=== PATIENT | female | born 1955 | race American Indian/Alaskan Native ===

== ENCOUNTER 2016-12-12 17:23 | Emergency (ER) | payer OTHER ==
[2016-12-12 17:36] VITALS: BP 165/89
[2016-12-12 17:59] LABS: Basophils % (Auto) 0.9 % (0.0-1.8); Hematocrit 34.2 % (30.3-42.9); Hemoglobin 10.9 gm/dl (10.1-14.3); Mean Corpuscular HGB Conc 32 % (30-34); Mean Corpuscular Hemoglobin 27 pg (28-32); Mean Corpuscular Volume 84 fl (79-97); Platelet Count 253 K/mm3 (140-440); Red Blood Count 4.05 M/mm3 (3.65-5.03); Red Cell Distribution Width 14.4 % (13.2-15.2); White Blood Count 6.2 K/mm3 (4.5-11.0)
[2016-12-12 18:07] LABS: Anion Gap 19 mmol/L; BUN/Creatinine Ratio 25.55; Blood Urea Nitrogen 23 mg/dL (7-17); Calcium 9.7 mg/dL (8.4-10.2); Carbon Dioxide 27 mmol/L (22-30); Chloride 95.3 mmol/L (98-107); Glucose 112 mg/dL (65-100); Sodium 137 mmol/L (137-145)
[2016-12-12 18:49] LABS: Bilirubin,Urine NEG (Negative); Blood,Urine NEG (Negative); Ketones,Urine NEG (Negative); Leukocyte Esterase,Urine NEG (Negative); Nitrite,Urine NEG (Negative); Protein,Urine <15 mg/dL mg/dL (Negative); Urobilinogen,Urine < 2.0 mg/dL (<2.0); WBC,Urine < 1.0 /HPF (0.0-6.0)
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
== END 2016-12-12 22:00 | disposition home or self-care (01) ==
LOC: ED 17:23
DX: R53.83 Other fatigue (principal); G44.1 Vascular headache, not elsewhere classified; I10 Essential (primary) hypertension; E11.9 Type 2 diabetes mellitus without complications; F12.10 Cannabis abuse, uncomplicated; Z95.818 Presence of other cardiac implants and grafts; Z88.1 Allergy status to other antibiotic agents
CPT/HCPCS: 36415; 80048; 81001; 82010; 82805; 82962; 85025; 99284

== ENCOUNTER 2017-02-23 00:05 | Emergency (ER) | payer OTHER ==
[2017-02-23] MEDS ORDERED: NORCO 5/325 PO ONE ×2 (01:21→05:05)
--- NOTE | 2017-02-23 04:28 | Emergency Department Report ---
ED Rash HPI - HPI Chief Complaint: Skin Rash Stated Complaint: POSS SPIDER TO SIDE/PAIN Time Seen by Provider: 02/23/17 04:21 Duration: 3 Days Location: Abdomen Rash Symptoms: Yes Itching, Yes Blistering, No Facial Swelling, No Tongue/Oral Swelling, No Breathing Difficulties, No Choking Sensation, No Wheezing/Dyspnea, No Peeling, No Fever, No Lightheaded, No Malaise, No Myalgias Severity: moderate Other History: 61-year-old female past medical history hypertension, diabetes presents with complaint of itchy painful rash to her right flank. Patient denies cough, denies chest pain. Patient denies fever or chills. States she thinks it may be an insect bite. States has had some bubbly appearance on the skin. When I interviewed the patient I specifically asked her if she had chickenpox as a child and she said yes. No prior history of shingles ED Review of Systems ROS: Stated complaint: POSS SPIDER TO SIDE/PAIN Other details as noted in HPI Constitutional: denies: chills, fever Eyes: denies: eye pain, eye discharge, vision change ENT: denies: ear pain, throat pain Respiratory: denies: cough, shortness of breath, wheezing Cardiovascular: denies: chest pain, palpitations Endocrine: no symptoms reported Gastrointestinal: denies: abdominal pain, nausea, diarrhea Genitourinary: denies: urgency, dysuria, discharge Musculoskeletal: denies: back pain, joint swelling, arthralgia Skin: denies: rash, lesions Neurological: denies: headache, weakness, paresthesias Psychiatric: denies: anxiety, depression Hematological/Lymphatic: denies: easy bleeding, easy bruising ED Past Medical Hx - Past Medical History Previous Medical History?: Yes Hx Hypertension: Yes (2008) Hx Diabetes: Yes - Surgical History Past Surgical History?: Yes Hx Coronary Stent: Yes Additional Surgical History: Fibroid tumor removed - Social History Smoking Status: Never Smoker Substance Use Type: None - Medications Home Medications: Home Medications Medication Instructions Recorded Confirmed Last Taken Type Doxazosin Mesylate [Cardura] 2 mg PO QHS 09/25/13 07/08/15 09/23/13 History Prasugrel [Effient] 10 mg PO DAILY 09/25/13 07/08/15 09/23/13 History glipiZIDE [glipiZIDE XL] 10 mg PO DAILY 09/25/13 07/08/15 09/23/13 History metFORMIN XR [Glucophage XR] 1,000 mg PO DAILY 09/25/13 07/08/15 09/23/13 History AtorvaSTATin [Lipitor] 20 mg PO DAILY 07/08/15 07/08/15 Unknown History Doxazosin Mesylate [Cardura] 2 mg PO QHS #7 tablet 07/08/15 Unknown Rx Ergocalciferol [Vitamin D2] 1 cap PO QWEEK 07/08/15 07/08/15 Unknown History Valsartan/Hydrochlorothiazide 1 tab PO QDAY 07/08/15 07/08/15 Unknown History [Diovan Hct 160-12.5 mg] Valsartan/Hydrochlorothiazide 1 tab PO QDAY #7 tablet 07/08/15 Unknown Rx [Diovan Hct 160-12.5 mg] amLODIPine [Norvasc] 10 mg PO DAILY 07/08/15 07/08/15 Unknown History amLODIPine [Norvasc] 10 mg PO DAILY #7 tab 07/08/15 Unknown Rx Clindamycin [Clindamycin CAP] 300 mg PO Q8H #21 cap 02/23/17 Unknown Rx HYDROcodone/APAP 5-325 [[place] 1 each PO Q6HR PRN #15 tablet 02/23/17 Unknown Rx 5/325] Valacyclovir HCl [Valtrex] 1,000 mg PO TID #21 tablet 02/23/17 Unknown Rx Rash Exam - Exam General: Vital signs noted. No distress. Alert and acting appropriately. HEENT: No Periorbital Edema, No Conjuctival Injection, No Chemosis, No Perioral Edema, No Tongue Edema, No Uvular Edema, No Compromised Airway, No Drooling Lungs: Yes Good Air Exchange (Normal Breath Sounds), No Wheezes, No Ronchi, No Stridor, No Cough, No Labored Respirations, No Retractions, No Use of Accessory Muscles, No Other Abnormal Lung Sounds Heart: Yes Regular, No Murmur Skin: Yes Maculopapular Rash (vesicular rash to her right flank along the path of the dermatome), Yes Tenderness, Yes Erythema, No Urticarial Rash, No Morbilliform rash, No Bulla(e), No Excoriations, No Weeping, No Edema, No Encrustations, No Other Other: Positive: Abdomen Normal, Neurologic Normal, Musculoskeletal Normal ED Course Vital Signs 02/23/17 01:09 Temperature 98.8 F Pulse Rate 94 H Respiratory 18 Rate Blood Pressure 142/84 O2 Sat by Pulse 96 Oximetry ED Medical Decision Making - Medical Decision Making A/P: Shingles rash 1-Valtrex for initial shingles outbreak 1 g 3 times a day for 1 week 2-[place] when necessary 3-Motrin when necessary 4- follow up with primary doctor 5- as there is some erythema at the site and surrounding site of shingles rash I will cover empirically with clindamycin. I will avoid Bactrim as patient is currently on anticoagulants. Patient has anaphylaxis with penicillin as well, will avoid cephalosporin Critical care attestation.: If time is entered above; I have spent that time in minutes in the direct care of this critically ill patient, excluding procedure time. ED Disposition Clinical Impression: Shingles rash Qualifiers: Herpes zoster complications: without complications Qualified Code(s): B02.9 - Zoster without complications Cellulitis Qualifiers: Site of cellulitis: trunk Disposition: - TO HOME OR SELFCARE Is pt being admited?: No Does the pt Need Aspirin: No Condition: Stable Instructions: Herpes Zoster (ED) Additional Instructions: I advised patient to return to the ED for any high fevers and or presence of severe cough Prescriptions: Clindamycin [Clindamycin CAP] 300 mg PO Q8H #21 cap HYDROcodone/APAP 5-325 [[place]ia 5/325] 1 each PO Q6HR PRN #15 tablet PRN Reason: Pain Valacyclovir HCl [Valtrex] 1,000 mg PO TID #21 tablet Referrals: DEYANIRA WELLER MD [Staff Physician] - 3-5 Days [facility] [Outside] - 3-5 Days Forms: Accompanied Note, Work/School Release Form(ED) Time of Disposition: 04:29
[2017-02-23] MEDS ORDERED: NORCO 5/325 ONE (05:04)
[2017-02-23 05:11] VITALS: BP 162/86
== END 2017-02-23 05:10 | disposition home or self-care (01) ==
LOC: ED 00:05
DX: L03.311 Cellulitis of abdominal wall (principal); I10 Essential (primary) hypertension; E11.9 Type 2 diabetes mellitus without complications; Z95.1 Presence of aortocoronary bypass graft
CPT/HCPCS: 99282

== ENCOUNTER 2017-03-27 01:18 | Emergency (ER) | payer OTHER ==
[2017-03-27] MEDS ORDERED: CATAPRES PO ONE (01:55)
[2017-03-27] MEDS ORDERED: CATAPRES ONE (01:58)
[2017-03-27 02:29] LABS: Basophils % (Auto) 0.6 % (0.0-1.8); Eosinophils % (Auto) 2.1 % (0.0-4.3); Hematocrit 35.5 % (30.3-42.9); Hemoglobin 11.4 gm/dl (10.1-14.3); Mean Corpuscular HGB Conc 32 % (30-34); Mean Corpuscular Hemoglobin 27 pg (28-32); Mean Corpuscular Volume 85 fl (79-97); Platelet Count 246 K/mm3 (140-440); Red Blood Count 4.18 M/mm3 (3.65-5.03)
[2017-03-27 02:44] LABS: Alanine Aminotransferase 13 units/L (7-56); Albumin 3.3 g/dL (3.9-5); Albumin/Globulin Ratio 0.9 %; Alkaline Phosphatase 62 units/L (35-129); Anion Gap 18 mmol/L; BUN/Creatinine Ratio 22.85; Bilirubin,Total < 0.20 mg/dL (0.1-1.2); Blood Urea Nitrogen 16 mg/dL (7-17); Carbon Dioxide 24 mmol/L (22-30); Chloride 98.3 mmol/L (98-107); Glucose 167 mg/dL (65-100); Potassium 3.6 mmol/L (3.6-5.0); Sodium 137 mmol/L (137-145)
[2017-03-27 04:50] VITALS: BP 159/90
--- NOTE | 2017-03-27 05:36 | Emergency Department Report ---
ED Lower Extremity HPI - General Chief Complaint: Extremity Problem,Nontraumatic Stated Complaint: FEET AND RT ARM PAIN Time Seen by Provider: 03/27/17 05:26 Source: patient Mode of arrival: Ambulatory Limitations: No Limitations - History of Present Illness Initial Comments: pt is a 61 y/o aaf with of DM who presents for left foot heal pain after wearing "shoes that are too big" pt advises that shoes "rub on the back of my heal" pt endorses blister last week healed, pt states pain is 4/10 aching pain is exacerbated by prolong ed standing waling Pain is relieved by rest and elevation, Complaint: foot injury Onset/Timin -: week(s) Injury: Foot: Left (heal tenderness) Type of Injury: other (none ) Place: home Severity: mild, moderate Severity scale (0 -10): 3 Improves With: rest Worsens With: weight bearing, palpation Context: other (friction rub from shoe ) Associated Symptoms: denies: swelling, numbness, tingling, unable to bear weight , able to partially bear weight, ambulatory Treatments Prior to Arrival: cold therapy - Related Data Home Medications Medication Instructions Recorded Confirmed Last Taken Doxazosin Mesylate [Cardura] 2 mg PO QHS 09/25/13 07/08/15 09/23/13 Prasugrel [Effient] 10 mg PO DAILY 09/25/13 07/08/15 09/23/13 glipiZIDE [glipiZIDE XL] 10 mg PO DAILY 09/25/13 07/08/15 09/23/13 Ergocalciferol [Vitamin D2] 1 cap PO QWEEK 07/08/15 07/08/15 Unknown Valsartan/Hydrochlorothiazide 1 tab PO QDAY 07/08/15 07/08/15 Unknown [Diovan Hct 160-12.5 mg] amLODIPine [Norvasc] 10 mg PO DAILY 07/08/15 07/08/15 Unknown Previous Rx's Medication Instructions Recorded Last Taken Type Doxazosin Mesylate [Cardura] 2 mg PO QHS #7 tablet 07/08/15 Unknown Rx Valsartan/Hydrochlorothiazide 1 tab PO QDAY #7 tablet 07/08/15 Unknown Rx [Diovan Hct 160-12.5 mg] amLODIPine [Norvasc] 10 mg PO DAILY #7 tab 07/08/15 Unknown Rx Clindamycin [Clindamycin CAP] 300 mg PO Q8H #21 cap 02/23/17 Unknown Rx HYDROcodone/APAP 5-325 [[place] 1 each PO Q6HR PRN #15 tablet 02/23/17 Unknown Rx 5/325] Valacyclovir HCl [Valtrex] 1,000 mg PO TID #21 tablet 02/23/17 Unknown Rx AtorvaSTATin [Lipitor] 20 mg PO DAILY #30 tablet 03/27/17 Unknown Rx Ibuprofen [Motrin 800 MG tab] 400 mg PO TID #30 tablet 03/27/17 Unknown Rx Valsartan/Hydrochlorothiazide 1 tab PO QDAY #30 tablet 03/27/17 Unknown Rx [Diovan Hct 160-12.5 mg] metFORMIN XR [Glucophage XR] 1,000 mg PO DAILY #60 tablet 03/27/17 Unknown Rx Allergies Allergy/AdvReac Type Severity Reaction Status Date / Time ampicillin AdvReac Severe FACIAL Verified 09/25/13 09:01 SWELLING,HIVES ED Review of Systems ROS: Stated complaint: FEET AND RT ARM PAIN Other details as noted in HPI Constitutional: denies: chills, fever Eyes: denies: eye pain, eye discharge, vision change ENT: denies: ear pain, throat pain Respiratory: denies: cough, shortness of breath, wheezing Cardiovascular: denies: chest pain, palpitations Endocrine: no symptoms reported Gastrointestinal: denies: abdominal pain, nausea, diarrhea Genitourinary: denies: urgency, dysuria, discharge Musculoskeletal: arthralgia, myalgia, other (left heal pain ) Skin: denies: rash, lesions Neurological: denies: headache, weakness, paresthesias Psychiatric: denies: anxiety, depression Hematological/Lymphatic: denies: easy bleeding, easy bruising ED Past Medical Hx - Past Medical History Previous Medical History?: Yes Hx Hypertension: Yes (2008) Hx Diabetes: Yes - Surgical History Past Surgical History?: Yes Hx Coronary Stent: Yes Additional Surgical History: Fibroid tumor removed - Social History Smoking Status: Never Smoker Substance Use Type: None - Medications Home Medications: Home Medications Medication Instructions Recorded Confirmed Last Taken Type Doxazosin Mesylate [Cardura] 2 mg PO QHS 09/25/13 07/08/15 09/23/13 History Prasugrel [Effient] 10 mg PO DAILY 09/25/13 07/08/15 09/23/13 History glipiZIDE [glipiZIDE XL] 10 mg PO DAILY 09/25/13 07/08/15 09/23/13 History Doxazosin Mesylate [Cardura] 2 mg PO QHS #7 tablet 07/08/15 Unknown Rx Ergocalciferol [Vitamin D2] 1 cap PO QWEEK 07/08/15 07/08/15 Unknown History Valsartan/Hydrochlorothiazide 1 tab PO QDAY 07/08/15 07/08/15 Unknown History [Diovan Hct 160-12.5 mg] Valsartan/Hydrochlorothiazide 1 tab PO QDAY #7 tablet 07/08/15 Unknown Rx [Diovan Hct 160-12.5 mg] amLODIPine [Norvasc] 10 mg PO DAILY 07/08/15 07/08/15 Unknown History amLODIPine [Norvasc] 10 mg PO DAILY #7 tab 07/08/15 Unknown Rx Clindamycin [Clindamycin CAP] 300 mg PO Q8H #21 cap 02/23/17 Unknown Rx HYDROcodone/APAP 5-325 [[place] 1 each PO Q6HR PRN #15 tablet 02/23/17 Unknown Rx 5/325] Valacyclovir HCl [Valtrex] 1,000 mg PO TID #21 tablet 02/23/17 Unknown Rx AtorvaSTATin [Lipitor] 20 mg PO DAILY #30 tablet 03/27/17 Unknown Rx Ibuprofen [Motrin 800 MG tab] 400 mg PO TID #30 tablet 03/27/17 Unknown Rx Valsartan/Hydrochlorothiazide 1 tab PO QDAY #30 tablet 03/27/17 Unknown Rx [Diovan Hct 160-12.5 mg] metFORMIN XR [Glucophage XR] 1,000 mg PO DAILY #60 tablet 03/27/17 Unknown Rx ED Physical Exam - General Limitations: No Limitations General appearance: alert, in no apparent distress - Head Head exam: Present: atraumatic, normocephalic - Eye Eye exam: Present: normal appearance - ENT ENT exam: Present: mucous membranes moist - Neck Neck exam: Present: normal inspection - Respiratory Respiratory exam: Present: normal lung sounds bilaterally. Absent: respiratory distress - Cardiovascular Cardiovascular Exam: Present: regular rate, normal rhythm. Absent: systolic murmur, diastolic murmur, rubs, gallop - GI/Abdominal GI/Abdominal exam: Present: soft, normal bowel sounds - Rectal Rectal exam: Present: deferred - Extremities Exam Extremities exam: Present: normal inspection, full ROM, tenderness, normal capillary refill. Absent: pedal edema, joint swelling, calf tenderness - Expanded Lower Extremity Exam Left Foot/Toe exam: Present: normal inspection, full ROM, tenderness, ecchymosis, erythema, calcaneal tenderness. Absent: swelling, abrasion, laceration, deformity, crepidus, dislocation, amputation, puncture wound, foreign body, tenderness at base of 5th metatarsal, nail avulsion, subungual hematoma Neuro vascular tendon exam: Present: no vascular compromise. Absent: pulse deficit, abnormal cap refill, motor deficit, sensory deficit, tendon deficit, extremity cold to touch, pallor, abnormal 2-point discrimination, decreased fine /light touch, foot drop, peroneal nerve deficit, significant pain with passive ROM of distal joint ED Course Vital Signs 03/27/17 03/27/17 03/27/17 01:42 02:03 04:48 Temperature 98.9 F 98.5 F Pulse Rate 84 84 81 Respiratory 18 20 Rate Blood Pressure 216/108 216/108 159/90 O2 Sat by Pulse 98 100 Oximetry ED Lower Extremity MDM - Lab Data Result diagrams: 03/27/17 02:13 03/27/17 02:13 - Medical Decision Making pt is a 61 y/o aaf with hx htn and DM II who presents for left heal pain after wearing shoes that were too big resulting in a blister formation , blister ruputres skin healed small less than a dime no erythema no swelling noted tendereness of site, plan. tylenol for pain , bacitracin ointment bid, mole skin or socks with proper size shoe pt verbalized understanding and agreement with same. Critical care attestation.: If time is entered above; I have spent that time in minutes in the direct care of this critically ill patient, excluding procedure time. ED Disposition Clinical Impression: Callus of heel Disposition: DC-01 TO HOME OR SELFCARE Is pt being admited?: No Does the pt Need Aspirin: No Condition: Good Instructions: Blister (ED) Prescriptions: AtorvaSTATin [Lipitor] 20 mg PO DAILY #30 tablet Ibuprofen [Motrin 800 MG tab] 400 mg PO TID #30 tablet metFORMIN XR [Glucophage XR] 1,000 mg PO DAILY #60 tablet Valsartan/Hydrochlorothiazide [Diovan Hct 160-12.5 mg] 1 tab PO QDAY #30 tablet Referrals: PRIMARY CARE, [Primary Care Provider] - 3-5 Days Forms: Work/School Release Form(ED) Time of Disposition: 05:53
[2017-03-27] MEDS: TYLENOL #3 PO ONE ×2 (05:45→05:49)
[2017-03-27] MEDS ORDERED: MOTRIN PO ONE (05:49)
== END 2017-03-27 06:07 | disposition home or self-care (01) ==
LOC: ED 01:18
DX: L84 Corns and callosities (principal); I10 Essential (primary) hypertension; E11.9 Type 2 diabetes mellitus without complications; Z88.1 Allergy status to other antibiotic agents
CPT/HCPCS: 36415; 80053; 85025; 99283

== ENCOUNTER 2017-08-20 20:08 | Emergency (ER) | payer OTHER ==
[2017-08-20 20:57] VITALS: BP 147/87
[2017-08-20] MEDS ORDERED: TYLENOL PO ONE (20:58)
--- NOTE | 2017-08-20 22:41 | XRay Report ---
FINAL REPORT PROCEDURE: XR CHEST ROUTINE 2V TECHNIQUE: PA and lateral chest radiographs were obtained. CPT 39847 HISTORY: productive cough COMPARISON: No prior studies are available for comparison. FINDINGS: Heart: Normal. Mediastinum/Vessels: Normal. Lungs/Pleural space: Normal. Bony thorax: No acute osseous abnormality. Other: IMPRESSION: Negative l examination.
--- NOTE | 2017-08-21 05:22 | Emergency Department Report ---
HPI - General Chief Complaint: Upper Respiratory Infection Time Seen by Provider: 08/21/17 04:42 - HPI HPI: Patient here reports cold symptoms since 08/08/2017. She says she has a productive cough with yellow mucus. She reports chills. She reports that she has nasal congestion and sinus pressure and then productive cough started one week ago. She is having generalized pain 10 out of 10 that they can. Patient states she's taken medication [id number] for cold and cough but is not helping. She has a history of diabetes and hypertension. Denies any chest pain or shortness of breath. Denies any abdominal or back pain. Denies any sore throat. ED Past Medical Hx - Past Medical History Previous Medical History?: Yes Hx Hypertension: Yes (2008) Hx Diabetes: Yes - Surgical History Past Surgical History?: Yes Hx Coronary Stent: Yes Additional Surgical History: Fibroid tumor removed - Family History Family history: diabetes, hypertension - Social History Smoking Status: Never Smoker Substance Use Type: None - Medications Home Medications: Home Medications Medication Instructions Recorded Confirmed Last Taken Type Doxazosin Mesylate [Cardura] 2 mg PO QHS 09/25/13 07/08/15 09/23/13 History Prasugrel [Effient] 10 mg PO DAILY 09/25/13 07/08/15 09/23/13 History glipiZIDE [glipiZIDE XL] 10 mg PO DAILY 09/25/13 07/08/15 09/23/13 History Doxazosin Mesylate [Cardura] 2 mg PO QHS #7 tablet 07/08/15 Unknown Rx Ergocalciferol [Vitamin D2] 1 cap PO QWEEK 07/08/15 07/08/15 Unknown History Valsartan/Hydrochlorothiazide 1 tab PO QDAY 07/08/15 07/08/15 Unknown History [Diovan Hct 160-12.5 mg] Valsartan/Hydrochlorothiazide 1 tab PO QDAY #7 tablet 07/08/15 Unknown Rx [Diovan Hct 160-12.5 mg] amLODIPine [Norvasc] 10 mg PO DAILY 07/08/15 07/08/15 Unknown History amLODIPine [Norvasc] 10 mg PO DAILY #7 tab 07/08/15 Unknown Rx Clindamycin [Clindamycin CAP] 300 mg PO Q8H #21 cap 02/23/17 Unknown Rx HYDROcodone/APAP 5-325 [[place] 1 each PO Q6HR PRN #15 tablet 02/23/17 Unknown Rx 5/325] Valacyclovir HCl [Valtrex] 1,000 mg PO TID #21 tablet 02/23/17 Unknown Rx AtorvaSTATin [Lipitor] 20 mg PO DAILY #30 tablet 03/27/17 Unknown Rx Ibuprofen [Motrin 800 MG tab] 400 mg PO TID #30 tablet 03/27/17 Unknown Rx Valsartan/Hydrochlorothiazide 1 tab PO QDAY #30 tablet 03/27/17 Unknown Rx [Diovan Hct 160-12.5 mg] metFORMIN XR [Glucophage XR] 1,000 mg PO DAILY #60 tablet 03/27/17 Unknown Rx Azithromycin [Zithromax Z-CECILIA] 250 mg PO DAILY 5 Days #5 tab 08/21/17 Unknown Rx Cetirizine HCl [ZyrTEC] 10 mg PO QAM 14 Days #14 capsule 08/21/17 Unknown Rx Fluticasone [Flonase] 1 spray NS QDAY 14 Days #1 bottle 08/21/17 Unknown Rx guaiFENesin/CODEINE [Robitussin AC] 5 ml PO Q8H PRN 5 Days #75 08/21/17 Unknown Rx oral.liqd ED Review of Systems ROS: Stated complaint: COLD SX Other details as noted in HPI Comment: All other systems reviewed and negative Constitutional: chills, fever Eyes: denies: eye pain, eye discharge ENT: congestion. denies: ear pain, throat pain Respiratory: cough. denies: orthopnea, shortness of breath, SOB with exertion, SOB at rest, stridor, wheezing Cardiovascular: denies: chest pain, palpitations, dyspnea on exertion, orthopnea , edema, syncope, paroxysmal nocturnal dyspnea Gastrointestinal: denies: abdominal pain, nausea, vomiting, diarrhea, constipation, hematemesis, melena Genitourinary: denies: urgency, dysuria, frequency, hematuria, discharge Musculoskeletal: myalgia. denies: back pain, joint swelling, arthralgia Skin: denies: rash Neurological: denies: headache, weakness, numbness, paresthesias, confusion, abnormal gait, vertigo Physical Exam - Physical Exam Vital Signs: Vital Signs 08/20/17 20:51 Temperature 99.3 F Pulse Rate 89 Respiratory 18 Rate Blood Pressure 147/87 O2 Sat by Pulse 100 Oximetry General: This is a 61-year-old female well-nourished well-developed in no acute distress. Physical Exam: Head: Normocephalic atraumatic Ears:BIateral TM congested without erythema or loss of bony landmarks. Alejandro EAC with normal exam. No mastoid bone tenderness. Mouth: Moist, no pharyngeal erythema or exudate . No tonsillar erythema or exudate. UVULA midline and oral airways patent. No peritonsillar abscess Neck: Nontender to palpate, supple, normal range of motion. No adenopathy. No c- spine tenderness. Nose: Bilateral nasal mucosa congested and erythema with clear drainage. Maxillary and frontal sinuses non-tender to palpate. Extremity: No clubbing, cyanosis or edema. +2 pulses to all extremities. No neurovascular compromise Abdomen: Soft, nontender to palpation in all quadrants. Normal bowel sounds and no CVA tenderness Eyes: Sclerae and conjunctiva without injection. Bilateral pupils equal and reactive to light. Bilateral lids are normal. Normal accommodation.BEOMI Lungs: Clear to auscultate bilaterally, no rhonchi wheezes or rales. Normal work of breathing and no chest wall tenderness. Dry cough CV: S1, S2. Regular rate and rhythm negative murmur. Capillary refill is less than 3 seconds Skin: Clean dry and intact, no rashes or lesions Psych: Normal mood and behavior ED Course Vital Signs 08/20/17 20:51 Temperature 99.3 F Pulse Rate 89 Respiratory 18 Rate Blood Pressure 147/87 O2 Sat by Pulse 100 Oximetry - Reevaluation(s) Reevaluation #1: 08/21/17 06:22 Patient given Tylenol 975 mg in triage area which relieved her pain. ED Medical Decision Making - Lab Data Influenza A and B is negative - Radiology Data Radiology results: report reviewed Chest x-ray revealed no acute cardiopulmonary findings - Medical Decision Making ED course: She is here complaining of cough and cold symptoms with sinus congestion that has been going on since 08/08/2017 and she said cough started one week ago when she is coughing up yellow mucus. Influenza A and B-, chest x- ray revealed no acute cardiopulmonary findings. I did discuss lab results and x -ray results with patient. Physical findings for acute upper respiratory infection with cough and congestion, body aches. I discussed diagnosis and treatment plan the patient and she voiced understanding. Patient discharged home in stable condition with prescription for Flonase, Zyrtec and Augmentin. Critical care attestation.: If time is entered above; I have spent that time in minutes in the direct care of this critically ill patient, excluding procedure time. ED Disposition Clinical Impression: Upper respiratory infection with cough and congestion, Body aches Disposition: - TO HOME OR SELFCARE Is pt being admited?: No Does the pt Need Aspirin: No Condition: Stable Instructions: Upper Respiratory Infection (ED), Acute Cough (ED) Additional Instructions: Please increase her fluid intake Flush nostrils with saline nasal spray take antibiotic as prescribed F/U with primary care physician as instructed and if he do not have a primary care physician U can follow up at [facility] Please do not drive or operate heavy machinery while taking in guaifenesin with codeine as this medication causes drowsiness Take [id number] Tylenol per dosing chart guidelines and this will help to relieve your body aches. Prescriptions: Azithromycin [Zithromax Z-CECILIA] 250 mg PO DAILY 5 Days #5 tab Cetirizine HCl [ZyrTEC] 10 mg PO QAM 14 Days #14 capsule Fluticasone [Flonase] 1 spray NS QDAY 14 Days #1 bottle guaiFENesin/CODEINE [Robitussin AC] 5 ml PO Q8H PRN 5 Days #75 oral.liqd PRN Reason: Cough Referrals: [facility] [Outside] - 2-3 Days PRIMARY CARE,MD [Primary Care Provider] - 2-3 Days Forms: Accompanied Note, Work/School Release Form(ED)
== END 2017-08-21 06:35 | disposition home or self-care (01) ==
LOC: ED 20:08
DX: J06.9 Acute upper respiratory infection, unspecified (principal); R05 Cough; M79.1 Myalgia; I10 Essential (primary) hypertension; E11.9 Type 2 diabetes mellitus without complications
CPT/HCPCS: 71046; 87400

== ENCOUNTER 2018-09-26 13:54 | Emergency (ER) | payer OTHER ==
--- NOTE | 2018-09-26 14:22 | Emergency Department Report ---
Blank Doc - Documentation Documentation: This is a 62-year-old female that presents with shortness of breathe with left sided chest pain. States radiates to left arm. Denies any other complaints. PMH: DM, HTN, cardiac stent This initial assessment diagnostic orders/clinical plan/treatment(s) is/are subject to change based on patient's health status, clinical progression and re- assessment by fellow clinical providers in the ED. Further treatment and workup at subsequent clinical providers discretion. Patient/guardians urged not to elope from ED s their condition may be serious if not clinically assessed and managed. Initial orders include: 1-Patient sent to MAIN ED for further evaluation and treatment 2- Labs 3- EKG 4- CXR
[2018-09-26 14:55] LABS: Basophils # (Auto) 0.1 K/mm3 (0.0-0.1); Eosinophils # (Auto) 0.1 K/mm3 (0.0-0.4); Eosinophils % (Auto) 2.2 % (0.0-4.3); Hemoglobin 10.7 gm/dl (10.1-14.3); Lymphocytes # (Auto) 2.1 K/mm3 (1.2-5.4); Lymphocytes % (Auto) 40.1 % (13.4-35.0); Mean Corpuscular HGB Conc 33 % (30-34); Mean Corpuscular Volume 84 fl (79-97); Monocytes # (Auto) 0.4 K/mm3 (0.0-0.8); Monocytes % (Auto) 6.9 % (0.0-7.3); Platelet Count 239 K/mm3 (140-440); Red Blood Count 3.94 M/mm3 (3.65-5.03); Red Cell Distribution Width 16.1 % (13.2-15.2)
[2018-09-26 15:23] LABS: Alanine Aminotransferase 13 units/L (7-56); Albumin 3.5 g/dL (3.9-5); BUN/Creatinine Ratio 21; Blood Urea Nitrogen 19 mg/dL (7-17); Calcium 8.8 mg/dL (8.4-10.2); Hemolysis Index 2
[2018-09-26 15:26] LABS: INR 0.95 (0.87-1.13)
[2018-09-26 15:27] LABS: Partial Thromboplastin Time 22.1 Sec. (24.2-36.6)
--- NOTE | 2018-09-26 15:27 | XRay Report ---
ROUTINE CHEST, TWO VIEWS: HISTORY: chest pain. The trachea, heart, mediastinal contour, lung alford and bony thorax are unremarkable. IMPRESSION: Unremarkable chest x-ray.
[2018-09-26] MEDS ORDERED: NITROSTAT SL PRN (17:05)
[2018-09-26] MEDS ORDERED: NACL 0.9% 500 ML 500 ML IV ONE (17:05)
[2018-09-26] MEDS ORDERED: BABY ASPIRIN PO ONE (17:05)
[2018-09-26] MEDS ORDERED: APRESOLINE IV ONE (17:06)
--- NOTE | 2018-09-26 17:06 | Emergency Department Report ---
ED General Adult HPI - General Chief complaint: Chest Pain Stated complaint: CHEST PAIN/SOB Time Seen by Provider: 09/26/18 14:20 Source: patient, RN notes reviewed, old records reviewed Mode of arrival: Ambulatory Limitations: No Limitations - History of Present Illness Initial comments: This is a 62-year-old female who I have evaluated in the past. The patient reports that secondary to insurance issues she does not currently have a primary general expeditor. She currently does not have a local primary care doctor. Past history includes hypertension, heart disease with stent, diabetes, high cholesterol. Patient presents to the emergency room with the complaint of cough, chest tightness, shortness of breath, without vomiting, diaphoresis. The chest tightness is central and left-sided, does not radiate to the back, arms or neck, and there is no vomiting or diaphoresis. The patient does endorse shortness of breath, which is intermittently exertional. She reports that she has a weekly road trip to [place] to visit family. She denies leg pain, leg swelling, recent surgeries, and , estrogen replacement therapy. -: Gradual, days(s) Location: chest Radiation: non-radiation Severity scale (0 -10): 6 Quality: aching Consistency: intermittent Improves with: none Worsens with: none Associated Symptoms: chest pain, cough, loss of appetite, shortness of breath. denies: confusion, diaphoresis, fever/chills, headaches, malaise, nausea/vomiting, rash, seizure, syncope, weakness - Related Data Home Medications Medication Instructions Recorded Confirmed Last Taken Doxazosin Mesylate [Cardura] 2 mg PO QHS 09/25/13 07/08/15 09/23/13 Prasugrel [Effient] 10 mg PO DAILY 09/25/13 07/08/15 09/23/13 glipiZIDE [glipiZIDE XL] 10 mg PO DAILY 09/25/13 07/08/15 09/23/13 Ergocalciferol [Vitamin D2] 1 cap PO QWEEK 07/08/15 07/08/15 Unknown Valsartan/Hydrochlorothiazide 1 tab PO QDAY 07/08/15 07/08/15 Unknown [Diovan Hct 160-12.5 mg] amLODIPine [Norvasc] 10 mg PO DAILY 07/08/15 07/08/15 Unknown Previous Rx's Medication Instructions Recorded Last Taken Type Doxazosin Mesylate [Cardura] 2 mg PO QHS #7 tablet 07/08/15 Unknown Rx Valsartan/Hydrochlorothiazide 1 tab PO QDAY #7 tablet 07/08/15 Unknown Rx [Diovan Hct 160-12.5 mg] amLODIPine [Norvasc] 10 mg PO DAILY #7 tab 07/08/15 Unknown Rx Clindamycin [Clindamycin CAP] 300 mg PO Q8H #21 cap 02/23/17 Unknown Rx HYDROcodone/APAP 5-325 [[place] 1 each PO Q6HR PRN #15 tablet 02/23/17 Unknown Rx 5/325] Valacyclovir HCl [Valtrex] 1,000 mg PO TID #21 tablet 02/23/17 Unknown Rx AtorvaSTATin [Lipitor] 20 mg PO DAILY #30 tablet 03/27/17 Unknown Rx Ibuprofen [Motrin 800 MG tab] 400 mg PO TID #30 tablet 03/27/17 Unknown Rx Valsartan/Hydrochlorothiazide 1 tab PO QDAY #30 tablet 03/27/17 Unknown Rx [Diovan Hct 160-12.5 mg] metFORMIN XR [Glucophage XR] 1,000 mg PO DAILY #60 tablet 03/27/17 Unknown Rx Azithromycin [Zithromax Z-CECILIA] 250 mg PO DAILY 5 Days #5 tab 08/21/17 Unknown Rx Cetirizine HCl [ZyrTEC] 10 mg PO QAM 14 Days #14 capsule 08/21/17 Unknown Rx Fluticasone [Flonase] 1 spray NS QDAY 14 Days #1 bottle 08/21/17 Unknown Rx guaiFENesin/CODEINE [Robitussin AC] 5 ml PO Q8H PRN 5 Days #75 08/21/17 Unknown Rx oral.liqd Allergies Allergy/AdvReac Type Severity Reaction Status Date / Time ampicillin AdvReac Severe FACIAL Verified 09/25/13 09:01 SWELLING,HIVES ED Review of Systems ROS: Stated complaint: CHEST PAIN/SOB Other details as noted in HPI Constitutional: malaise. denies: fever Eyes: denies: eye discharge ENT: congestion. denies: epistaxis Respiratory: cough, shortness of breath Cardiovascular: chest pain Gastrointestinal: denies: abdominal pain, vomiting Genitourinary: denies: dysuria Musculoskeletal: denies: arthralgia, myalgia Skin: denies: lesions Neurological: weakness Psychiatric: denies: anxiety ED Past Medical Hx - Past Medical History Hx Hypertension: Yes (2008) Hx Diabetes: Yes - Surgical History Hx Coronary Stent: Yes Additional Surgical History: Fibroid tumor removed - Social History Smoking Status: Never Smoker Substance Use Type: None - Medications Home Medications: Home Medications Medication Instructions Recorded Confirmed Last Taken Type Doxazosin Mesylate [Cardura] 2 mg PO QHS 09/25/13 07/08/15 09/23/13 History Prasugrel [Effient] 10 mg PO DAILY 09/25/13 07/08/15 09/23/13 History glipiZIDE [glipiZIDE XL] 10 mg PO DAILY 09/25/13 07/08/15 09/23/13 History Doxazosin Mesylate [Cardura] 2 mg PO QHS #7 tablet 07/08/15 Unknown Rx Ergocalciferol [Vitamin D2] 1 cap PO QWEEK 07/08/15 07/08/15 Unknown History Valsartan/Hydrochlorothiazide 1 tab PO QDAY 07/08/15 07/08/15 Unknown History [Diovan Hct 160-12.5 mg] Valsartan/Hydrochlorothiazide 1 tab PO QDAY #7 tablet 07/08/15 Unknown Rx [Diovan Hct 160-12.5 mg] amLODIPine [Norvasc] 10 mg PO DAILY 07/08/15 07/08/15 Unknown History amLODIPine [Norvasc] 10 mg PO DAILY #7 tab 07/08/15 Unknown Rx Clindamycin [Clindamycin CAP] 300 mg PO Q8H #21 cap 02/23/17 Unknown Rx HYDROcodone/APAP 5-325 [[place] 1 each PO Q6HR PRN #15 tablet 02/23/17 Unknown Rx 5/325] Valacyclovir HCl [Valtrex] 1,000 mg PO TID #21 tablet 02/23/17 Unknown Rx AtorvaSTATin [Lipitor] 20 mg PO DAILY #30 tablet 03/27/17 Unknown Rx Ibuprofen [Motrin 800 MG tab] 400 mg PO TID #30 tablet 03/27/17 Unknown Rx Valsartan/Hydrochlorothiazide 1 tab PO QDAY #30 tablet 03/27/17 Unknown Rx [Diovan Hct 160-12.5 mg] metFORMIN XR [Glucophage XR] 1,000 mg PO DAILY #60 tablet 03/27/17 Unknown Rx Azithromycin [Zithromax Z-CECILIA] 250 mg PO DAILY 5 Days #5 tab 08/21/17 Unknown Rx Cetirizine HCl [ZyrTEC] 10 mg PO QAM 14 Days #14 capsule 08/21/17 Unknown Rx Fluticasone [Flonase] 1 spray NS QDAY 14 Days #1 bottle 08/21/17 Unknown Rx guaiFENesin/CODEINE [Robitussin AC] 5 ml PO Q8H PRN 5 Days #75 08/21/17 Unknown Rx oral.liqd ED Physical Exam - General Limitations: No Limitations General appearance: alert, in no apparent distress - Head Head exam: Present: atraumatic, normocephalic - Eye Eye exam: Present: normal appearance, EOMI. Absent: nystagmus - ENT ENT exam: Present: normal exam, normal orophraynx, mucous membranes moist, normal external ear exam - Neck Neck exam: Present: normal inspection, full ROM. Absent: tenderness, meningismus - Respiratory Respiratory exam: Present: normal lung sounds bilaterally. Absent: respiratory distress - Cardiovascular Cardiovascular Exam: Present: regular rate, normal rhythm, normal heart sounds. Absent: bradycardia, tachycardia, systolic murmur, diastolic murmur, rubs, gallop - GI/Abdominal GI/Abdominal exam: Present: soft. Absent: distended, tenderness, guarding, rebound, rigid, pulsatile mass - Extremities Exam Extremities exam: Present: normal inspection, full ROM, pedal edema, other (2+ pulses noted in the bilateral upper, lower extremities. Compartments soft. No long bony tenderness. The pelvis is stable.). Absent: calf tenderness - Back Exam Back exam: Present: normal inspection, full ROM. Absent: tenderness, CVA tenderness (R), paraspinal tenderness, vertebral tenderness - Neurological Exam Neurological exam: Present: alert, oriented X3, CN II-XII intact, normal gait, other (Extraocular movements intact. Tongue midline. No facial droop. Facial sensation intact to light touch in the V1, V2, V3 distribution bilaterally. 5 and 5 strength in 4 extremities.. Sensation is intact to light touch in 4 extremities.). Absent: motor sensory deficit - Psychiatric Psychiatric exam: Present: normal affect, normal mood - Skin Skin exam: Present: warm, dry, intact, normal color. Absent: rash ED Course Vital Signs 09/26/18 09/26/18 09/26/18 14:20 16:45 19:03 Temperature 97.7 F Pulse Rate 77 79 Respiratory 18 16 Rate Blood Pressure 204/96 200/92 O2 Sat by Pulse 97 99 Oximetry - Reevaluation(s) Reevaluation #1: 09/26/18 20:20 CT scan of the chest is negative for acute disease. ED Medical Decision Making - Lab Data Result diagrams: 09/26/18 14:40 09/26/18 14:40 Vital Signs 09/26/18 09/26/18 14:20 16:45 Temperature 97.7 F Pulse Rate 77 Respiratory 18 16 Rate Blood Pressure 204/96 O2 Sat by Pulse 97 99 Oximetry Lab Results 09/26/18 09/26/18 09/26/18 Range/Units 14:40 14:40 14:40 WBC 5.1 (4.5-11.0) K/mm3 RBC 3.94 (3.65-5.03) M/mm3 Hgb 10.7 (10.1-14.3) gm/dl Hct 33.0 (30.3-42.9) % MCV 84 (79-97) fl MCH 27 L (28-32) pg MCHC 33 (30-34) % RDW 16.1 H (13.2-15.2) % Plt Count 239 (140-440) K/mm3 Lymph % (Auto) 40.1 H (13.4-35.0) % [place] % (Auto) 6.9 (0.0-7.3) % Eos % (Auto) 2.2 (0.0-4.3) % Baso % (Auto) 1.0 (0.0-1.8) % Lymph # 2.1 (1.2-5.4) K/mm3 [place] # 0.4 (0.0-0.8) K/mm3 Eos # 0.1 (0.0-0.4) K/mm3 Baso # 0.1 (0.0-0.1) K/mm3 Seg Neutrophils % 49.8 (40.0-70.0) % Seg Neutrophils # 2.5 (1.8-7.7) K/mm3 PT 13.3 (12.2-14.9) Sec. INR 0.95 (0.87-1.13) APTT 22.1 L (24.2-36.6) Sec. D-Dimer 1106.22 H (0-234) ng/mlDDU Sodium 142 (137-145) mmol/L Potassium 4.2 (3.6-5.0) mmol/L Chloride 104.3 (98-107) mmol/L Carbon Dioxide 27 (22-30) mmol/L Anion Gap 15 mmol/L BUN 19 H (7-17) mg/dL Creatinine 0.9 (0.7-1.2) mg/dL Estimated GFR > 60 ml/min BUN/Creatinine Ratio 21 % Glucose 93 (65-100) mg/dL Calcium 8.8 (8.4-10.2) mg/dL Total Bilirubin 0.30 (0.1-1.2) mg/dL AST 15 (5-40) units/L ALT 13 (7-56) units/L Alkaline Phosphatase 59 (35-129) units/L Troponin T < 0.010 (0.00-0.029) ng/mL Total Protein 7.0 (6.3-8.2) g/dL Albumin 3.5 L (3.9-5) g/dL Albumin/Globulin Ratio 1.0 % /18/19 Range/Units 16:31 WBC (4.5-11.0) K/mm3 RBC (3.65-5.03) M/mm3 Hgb (10.1-14.3) gm/dl Hct (30.3-42.9) % MCV (79-97) fl MCH (28-32) pg MCHC (30-34) % RDW (13.2-15.2) % Plt Count (140-440) K/mm3 Lymph % (Auto) (13.4-35.0) % [place] % (Auto) (0.0-7.3) % Eos % (Auto) (0.0-4.3) % Baso % (Auto) (0.0-1.8) % Lymph # (1.2-5.4) K/mm3 [place] # (0.0-0.8) K/mm3 Eos # (0.0-0.4) K/mm3 Baso # (0.0-0.1) K/mm3 Seg Neutrophils % (40.0-70.0) % Seg Neutrophils # (1.8-7.7) K/mm3 PT (12.2-14.9) Sec. INR (0.87-1.13) APTT (24.2-36.6) Sec. D-Dimer (0-234) ng/mlDDU Sodium (137-145) mmol/L Potassium (3.6-5.0) mmol/L Chloride (98-107) mmol/L Carbon Dioxide (22-30) mmol/L Anion Gap mmol/L BUN (7-17) mg/dL Creatinine (0.7-1.2) mg/dL Estimated GFR ml/min BUN/Creatinine Ratio % Glucose (65-100) mg/dL Calcium (8.4-10.2) mg/dL Total Bilirubin (0.1-1.2) mg/dL AST (5-40) units/L ALT (7-56) units/L Alkaline Phosphatase (35-129) units/L Troponin T < 0.010 (0.00-0.029) ng/mL Total Protein (6.3-8.2) g/dL Albumin (3.9-5) g/dL Albumin/Globulin Ratio % - EKG Data -: EKG Interpreted by De EKG shows normal: sinus rhythm Rate: normal - EKG Data 09/26/18 18:10 Seven, 79 beats per minutes, normal axis, atrial enlargement, QTC prolonged, motion artifact, borderline left ventricular hypertrophy, not consistent with ST elevation myocardial infarction, appears grossly unchanged when compared to prior EKG from September 2013 - Radiology Data Radiology results: report reviewed, image reviewed X-ray of the chest is negative for acute disease. - Medical Decision Making Differential diagnosis, including not limited to: Acute coronary syndrome, GERD, gastritis, hiatal hernia, pneumonia, pulmonary embolus, pericarditis, my ocarditis Assessment and plan: 62-year-old female with known history of coronary artery disease, multiple vascular risk factors, with history of the atypical chest pain. Patient is not suitable for outpatient follow-up as she is not able to follow up with outpatient general expeditor secondary to insurance issues. She is pain-free at this time, x-ray of the chest is unremarkable, troponin negative 2, and EKG appears to be unchanged when compared to prior EKG. Low risk by well's criteria, only risk factor is occasional trips to another state, not tachycardic or hypoxic, however d-dimer is elevated, and a CT scan of the chest will be obtained. Doubt aortic disease as patient has equal pulses in the upper, lower extremities, the mediastinum appears to be unremarkable on x-ray examination. Patient will be given aspirin, hydralazine for her hypertension. She reports no contraindications to systemic anticoagulation. Case was presented to the Hospital physician, Dr. Hamilton, who accepts the patient to the medical service for cardiac risk stratification, and blood pressure control. I will defer to the inpatient team to follow up on CT scan of the chest. Critical care attestation.: If time is entered above; I have spent that time in minutes in the direct care of this critically ill patient, excluding procedure time. ED Disposition Clinical Impression: Hypertensive urgency, Chest pain, CAD (coronary artery disease) Disposition: 09 OP ADMIT IP TO THIS HOSP Is pt being admited?: Yes Condition: Good Instructions: Chest Pain (ED) Referrals: CORBY BATES MD [Primary Care Provider] - 3-5 Days
--- NOTE | 2018-09-26 19:46 | Cat Scan Report ---
FINAL REPORT EXAM: CT ANGIO CHEST HISTORY: cp dyspnea TECHNIQUE: CT chest CT angiogram with reconstructions PRIORS: None. FINDINGS: There is no evidence of filling defect within the central pulmonary vasculature to suggest the presen ce of acute pulmonary embolus. No evidence of mediastinal pathologic lymph node enlargement. There is some calcification of the left hilum and few small calcified mediastinal lymph nodes noted. Heart and great vessels are unremarkable. The aorta is normal in caliber. No focal pulmonary infiltrate identified. There is a small left pleural fluid collection.. Within the lingula there is a peripheral 0.58 centimeter noncalcified nodule (axial slice 56). Visualized portion of the upper abdomen demonstrates no acute change. IMPRESSION: Small left pleural effusion 0.58 centimeter noncalcified nodule within the lingula. Recommend followup CT in 6-[address] evidence of acute pulmonary embolus
--- NOTE | 2018-09-27 05:37 | Event Note ---
Date: 09/26/18 Patient being evaluated for chest pain Troponins negative Patient on Effient CTA chest no pulmonary embolism Dis Diagnosis Non specific Chest pain Cont Home meds Follow up with [facility]
[2018-09-27] MEDS ORDERED: TYLENOL ONE (05:50)
[2018-09-27 05:51] VITALS: BP 163/76
== END 2018-09-27 08:25 | disposition admitted as inpatient to this hospital (09) ==
LOC: ED 13:54
DX: I16.0 Hypertensive urgency (principal); I25.10 Atherosclerotic heart disease of native coronary artery without angina pectoris; R07.89 Other chest pain; I10 Essential (primary) hypertension; E11.9 Type 2 diabetes mellitus without complications; Z95.5 Presence of coronary angioplasty implant and graft; Z79.899 Other long term (current) drug therapy; Z88.1 Allergy status to other antibiotic agents
CPT/HCPCS: 36415; 71046; 71275; 80053; 82962; 84484; 85025; 85379; 85610; 85730; 93005; 93010; 96374; 99285; J0360; J7040; Q9967

== ENCOUNTER 2019-03-06 10:46 | Outpatient (CLI) | payer OTHER ==
--- NOTE | 2019-03-06 12:36 | Mammography Report ---
BILATERAL DIGITAL SCREENING MAMMOGRAM WITH CAD INDICATION: Routine screening mammography. TECHNIQUE: Digital bilateral 2D mammography was obtained in the craniocaudal and mediolateral obliq ue projections. This examination was interpreted with the benefit of Computer-Aided Detection analysi s. COMPARISON: None. She had a previous mammogram at [facility] but it is not available. FINDINGS: Breast Density: There are scattered areas of fibroglandular density. No mass, architectural distortion or suspicious calcifications. IMPRESSION:No mammographic evidence of malignancy. BI-RADS Category 1: Negative. No mammographic evidence of malignancy. Recommend routine screening m ammography in one year. A "normal" or negative report should not discourage follow up or biopsy of a clinically significant f inding. A written summary of these findings will be mailed to the patient. The patient will be entered into a mammography reporting system which will generate a reminder letter for the patient's next appointmen t at the appropriate interval. [employer] recommends yearly mammograms starting at age 40 and continuing as l azeem as a woman is in good health. Breast MRI is recommended for women with an approximate 20-25% or greater lifetime risk of breast cancer, including women with a strong family history of breast or ova sonali cancer or who have been treated for Hodgkin's disease. Signer Name: Obinna Dangelo MD Signed: 03/06/2019 12:32 PM Workstation Name: [id number]
== END 2019-03-06 10:47 | disposition home or self-care (01) ==
LOC: MAMMO 10:46
PROVIDERS: ATTEND Family Medicine
DX: Z12.31 Encounter for screening mammogram for malignant neoplasm of breast (principal); I10 Essential (primary) hypertension
CPT/HCPCS: 77067

== ENCOUNTER 2020-08-25 23:41 | Emergency (ER) | payer SELFPAY ==
--- NOTE | 2020-08-25 23:54 | Emergency Department Report ---
Blank Doc - Documentation Documentation: 64-year-old female that presents with body aches, generalized weakness, cough, sore throat and headache. Hypertensive in the ED. Stated headache is not a normal headache for her. Denies any injuries or trauma. Neuro exam is unremarkable. No stroke symptoms. This initial assessment/diagnostic orders/clinical plan/treatment(s) is/are subject to change based on patient's health status, clinical progression and re- assessment by fellow clinical providers in the ED. Further treatment and workup at subsequent clinical providers discretion. Patient/guardians urged not to elope from the ED as their condition may be serious if not clinically assessed and managed. Initial orders include: 1- Patient sent to [facility] for further evaluation and treatment 2- labs r/o HTN emergency 3- CT head
--- NOTE | 2020-08-26 00:52 | XRay Report ---
CHEST 2 VIEWS 0024 INDICATION / CLINICAL INFORMATION: cough COMPARISON: 07/26/2019 FINDINGS: SUPPORT DEVICES: None. HEART / MEDIASTINUM: Interval cardiac surgical changes are seen. Heart is slightly enlarged. LUNGS / PLEURA: Pulmonary vascularity appears within normal limits. No obvious pulmonary infiltrates are seen. No pleural effusions are noted. Artifact overlies the images. No pneumothorax. ADDITIONAL FINDINGS: No significant additional findings. IMPRESSION: No significant acute abnormality Signer Name: Alejandro Cantrell MD Signed: 08/26/2020 12:47 AM Workstation Name: [id number]
--- NOTE | 2020-08-26 00:56 | Cat Scan Report ---
CT HEAD WITHOUT CONTRAST INDICATION: headache w/ HTN TECHNIQUE: All CT scans at this location are performed using CT dose reduction for ALARA by means of automated exposure control. COMPARISON: None available. FINDINGS: BRAIN: No hemorrhage or mass effect are seen. No evidence of acute infarction is noted. ORBITS: Normal as visualized. SOFT TISSUES OF HEAD: Normal. CALVARIUM: Normal. VISUALIZED PARANASAL SINUSES AND MASTOID AIR CELLS: Clear. ADDITIONAL FINDINGS: None. IMPRESSION: No acute intracranial abnormality. Signer Name: Alejandro Cantrell MD Signed: 08/26/2020 12:52 AM Workstation Name: [id number]
[2020-08-26 02:13] LABS: Alanine Aminotransferase 19 units/L (7-56); Albumin 3.8 g/dL (3.9-5); BUN/Creatinine Ratio 17; Blood Urea Nitrogen 20 mg/dL (7-17); Calcium 8.6 mg/dL (8.4-10.2); Hemolysis Index 8
[2020-08-26 02:47] LABS: Basophils % (Auto) 0.4 % (0.0-1.8); Eosinophils # (Auto) 0.1 K/mm3 (0.0-0.4); Eosinophils % (Auto) 2.2 % (0.0-4.3); Hematocrit 35.7 % (30.3-42.9); Hemoglobin 11.4 gm/dl (10.1-14.3); Lymphocytes # (Auto) 2.1 K/mm3 (1.2-5.4); Mean Corpuscular HGB Conc 32 % (30-34); Mean Corpuscular Volume 85 fl (79-97); Monocytes # (Auto) 0.5 K/mm3 (0.0-0.8); Monocytes % (Auto) 8.9 % (0.0-7.3); Platelet Count 215 K/mm3 (140-440); Red Blood Count 4.21 M/mm3 (3.65-5.03); Red Cell Distribution Width 15.1 % (13.2-15.2)
[2020-08-26 06:11] VITALS: BP 200/83
== END 2020-08-26 06:41 | disposition left against medical advice (07) ==
LOC: ED 23:41
DX: J02.9 Acute pharyngitis, unspecified (principal); R05 Cough; R53.1 Weakness; Z88.0 Allergy status to penicillin
CPT/HCPCS: 36415; 70450; 71046; 80053; 85025

== ENCOUNTER 2022-05-01 11:41 | Emergency (ER) | payer MEDICARE, OTHER ==
[2022-05-01 12:48] VITALS: BP 190/91
--- NOTE | 2022-05-01 13:24 | XRay Report ---
LEFT ANKLE 3 VIEW(S) INDICATION / CLINICAL INFORMATION: pain, swelling COMPARISON: None available. FINDINGS: BONES / JOINT(S): No acute fracture or subluxation. Calcaneal enthesopathy is noted. SOFT TISSUES: There is diffuse soft tissue swelling about the ankle greatest laterally. ADDITIONAL FINDINGS: None. IMPRESSION: 1. No acute findings. Signer Name: Mohamud Mays MD Signed: 05/01/2022 1:19 PM Workstation Name: [email or web address]
--- NOTE | 2022-05-01 16:47 | Emergency Department Report ---
ED Extremity Problem HPI - General Chief complaint: Extremity Injury, Lower Stated complaint: BITE ON FOOT Source: patient Mode of arrival: Ambulatory Limitations: No Limitations - History of Present Illness Initial comments: 66-year-old female presents to the ED complaining of left ankle pain x1 week. Patient denies any trauma. She has mild swelling noted to the ankle area. Patient states pain is a current 3 out of 10. Patient prolonged walks every day and at the end of the day she noticed swelling . Patient states for the last couple days she has been elevating her legs which has decreased the swelling. Patient denies any numbness and tingling. Patient is alert and oriented x3. Patient is ambulatory. No acute distress noted. No ill appearance noted. MD Complaint: extremity pain, extremity swelling Onset/Timin -: week(s) Location: left History of Same: No Radiation: none Severity scale (0 -10): 3 Quality: aching Consistency: intermittent Worsens with: nothing Associated Symptoms: denies other symptoms - Related Data Home Medications Medication Instructions Recorded Confirmed Last Taken Doxazosin Mesylate [Cardura] 2 mg PO QHS 09/25/13 07/08/15 09/23/13 Prasugrel [Effient] 10 mg PO DAILY 09/25/13 07/08/15 09/23/13 glipiZIDE [glipiZIDE XL] 10 mg PO DAILY 09/25/13 07/08/15 09/23/13 Ergocalciferol [Vitamin D2] 1 cap PO QWEEK 07/08/15 07/08/15 Unknown Valsartan/Hydrochlorothiazide 1 tab PO QDAY 07/08/15 07/08/15 Unknown [Diovan Hct 160-12.5 mg] amLODIPine 10 mg PO DAILY 07/08/15 07/08/15 Unknown Previous Rx's Medication Instructions Recorded Last Taken Type Doxazosin Mesylate [Cardura] 2 mg PO QHS #7 tablet 07/08/15 Unknown Rx Valsartan/Hydrochlorothiazide 1 tab PO QDAY #7 tablet 07/08/15 Unknown Rx [Diovan Hct 160-12.5 mg] amLODIPine [Norvasc] 10 mg PO DAILY #7 tab 07/08/15 Unknown Rx Clindamycin [Clindamycin CAP] 300 mg PO Q8H #21 cap 02/23/17 Unknown Rx HYDROcodone/APAP 5-325 [[place] 1 each PO Q6HR PRN #15 tablet 02/23/17 Unknown Rx 5/325] AtorvaSTATin [Lipitor] 20 mg PO DAILY #30 tablet 03/27/17 Unknown Rx Ibuprofen [Motrin 800 MG tab] 400 mg PO TID #30 tablet 03/27/17 Unknown Rx Valsartan/Hydrochlorothiazide 1 tab PO QDAY #30 tablet 03/27/17 Unknown Rx [Diovan Hct 160-12.5 mg] metFORMIN XR [Glucophage XR] 1,000 mg PO DAILY #60 tablet 03/27/17 Unknown Rx Azithromycin [Zithromax Z-CECILIA] 250 mg PO DAILY 5 Days #5 tab 08/21/17 Unknown Rx Cetirizine HCl [ZyrTEC 10mg cap] 10 mg PO QAM 14 Days #14 capsule 08/21/17 Unknown Rx Fluticasone [Flonase] 1 spray NS QDAY 14 Days #1 bottle 08/21/17 Unknown Rx guaiFENesin/CODEINE [Robitussin AC] 5 ml PO Q8H PRN 5 Days #75 08/21/17 Unknown Rx oral.liqd Allergies Allergy/AdvReac Type Severity Reaction Status Date / Time ampicillin AdvReac Severe FACIAL Verified 05/01/22 12:49 SWELLING,HIVES ED Review of Systems ROS: Stated complaint: BITE ON FOOT Other details as noted in HPI Constitutional: denies: chills, fever Eyes: denies: eye pain, eye discharge, vision change ENT: denies: ear pain, throat pain Respiratory: denies: cough, shortness of breath, wheezing Cardiovascular: denies: chest pain, palpitations Endocrine: no symptoms reported Gastrointestinal: denies: abdominal pain, nausea, diarrhea Genitourinary: denies: urgency, dysuria, discharge Musculoskeletal: joint swelling. denies: back pain, arthralgia Skin: denies: rash, lesions Neurological: denies: headache, weakness, paresthesias Psychiatric: denies: anxiety, depression Hematological/Lymphatic: denies: easy bleeding, easy bruising ED Past Medical Hx - Past Medical History Hx Hypertension: Yes (2008) Hx Diabetes: Yes - Surgical History Hx Coronary Stent: Yes Additional Surgical History: Fibroid tumor removed - Social History Smoking Status: Never Smoker Substance Use Type: Alcohol - Medications Home Medications: Home Medications Medication Instructions Recorded Confirmed Last Taken Type Doxazosin Mesylate [Cardura] 2 mg PO QHS 09/25/13 07/08/15 09/23/13 History Prasugrel [Effient] 10 mg PO DAILY 09/25/13 07/08/15 09/23/13 History glipiZIDE [glipiZIDE XL] 10 mg PO DAILY 09/25/13 07/08/15 09/23/13 History Doxazosin Mesylate [Cardura] 2 mg PO QHS #7 tablet 07/08/15 Unknown Rx Ergocalciferol [Vitamin D2] 1 cap PO QWEEK 07/08/15 07/08/15 Unknown History Valsartan/Hydrochlorothiazide 1 tab PO QDAY 07/08/15 07/08/15 Unknown History [Diovan Hct 160-12.5 mg] Valsartan/Hydrochlorothiazide 1 tab PO QDAY #7 tablet 07/08/15 Unknown Rx [Diovan Hct 160-12.5 mg] amLODIPine 10 mg PO DAILY 07/08/15 07/08/15 Unknown History amLODIPine [Norvasc] 10 mg PO DAILY #7 tab 07/08/15 Unknown Rx Clindamycin [Clindamycin CAP] 300 mg PO Q8H #21 cap 02/23/17 Unknown Rx HYDROcodone/APAP 5-325 [[place] 1 each PO Q6HR PRN #15 tablet 02/23/17 Unknown Rx 5/325] AtorvaSTATin [Lipitor] 20 mg PO DAILY #30 tablet 03/27/17 Unknown Rx Ibuprofen [Motrin 800 MG tab] 400 mg PO TID #30 tablet 03/27/17 Unknown Rx Valsartan/Hydrochlorothiazide 1 tab PO QDAY #30 tablet 03/27/17 Unknown Rx [Diovan Hct 160-12.5 mg] metFORMIN XR [Glucophage XR] 1,000 mg PO DAILY #60 tablet 03/27/17 Unknown Rx Azithromycin [Zithromax Z-CECILIA] 250 mg PO DAILY 5 Days #5 tab 08/21/17 Unknown Rx Cetirizine HCl [ZyrTEC 10mg cap] 10 mg PO QAM 14 Days #14 capsule 08/21/17 Unknown Rx Fluticasone [Flonase] 1 spray NS QDAY 14 Days #1 bottle 08/21/17 Unknown Rx guaiFENesin/CODEINE [Robitussin AC] 5 ml PO Q8H PRN 5 Days #75 08/21/17 Unknown Rx oral.liqd ED Physical Exam - General Limitations: No Limitations General appearance: alert, in no apparent distress - Head Head exam: Present: atraumatic, normocephalic - Eye Eye exam: Present: normal appearance - ENT ENT exam: Present: mucous membranes moist - Neck Neck exam: Present: normal inspection - Respiratory Respiratory exam: Present: normal lung sounds bilaterally. Absent: respiratory distress - Cardiovascular Cardiovascular Exam: Present: regular rate, normal rhythm. Absent: systolic murmur, diastolic murmur, rubs, gallop - GI/Abdominal GI/Abdominal exam: Present: soft, normal bowel sounds - Extremities Exam Extremities exam: Present: normal inspection - Back Exam Back exam: Present: normal inspection - Neurological Exam Neurological exam: Present: alert, oriented X3 - Psychiatric Psychiatric exam: Present: normal affect, normal mood - Skin Skin exam: Present: warm, dry, intact, normal color. Absent: rash ED Course Vital Signs 05/01/22 12:44 Temperature 98.4 F Pulse Rate 69 Respiratory 16 Rate Blood Pressure 190/91 O2 Sat by Pulse 99 Oximetry ED Medical Decision Making - Medical Decision Making 66-year-old female presents to the ED complaining of left ankle pain x1 week. Patient denies any trauma. She has mild swelling noted to the ankle area. Patient states pain is a current 3 out of 10. Patient prolonged walks every day and at the end of the day she noticed swelling . Patient states for the last couple days she has been elevating her legs which has decreased the swelling. Patient denies any numbness and tingling. Patient is alert and oriented x3. Patient is ambulatory. No acute distress noted. No ill appearance noted. Patient states that she stopped taking her amlodipine for high blood pressure. States that the medication caused her to have her lower. Advised patient to follow-up with PCP for hypertension medication. physical examination patient has mild edema noted around the left ankle. Rechecked the patient is resting quietly , comfortable and feeling better. I discussed the results of diagnostic study, my clinical impression and the plan for further treatment with the patient. Patient agrees with plan and discharge at this present time. All question addressed. I have given the patient instruction regarding a diagnosis ,expectation ,follow- up and return precaution. I explained to the patient that emergent condition may arise and to return to the ED for new worsen and any new persisting condition. I have explained the importance of following up with the primary care physician or referral physician listed below has instructed. The patient verbalized understanding of discharge instruction. Critical care attestation.: If time is entered above; I have spent that time in minutes in the direct care of this critically ill patient, excluding procedure time. ED Disposition Clinical Impression: Acute left ankle pain Disposition: 01 HOME / SELF CARE / HOMELESS Is pt being admited?: No Does the pt Need Aspirin: No Condition: Stable Instructions: Musculoskeletal Pain, Ankle Pain Additional Instructions: take over the counter tylenol for mild pain return to Ed for any worsen symptoms continue to elevated extremities after prolong walking Referrals: PRIMARY CARE, [Primary Care Provider] - 3-5 Days [facility] [Provider Group] - 3-5 Days Forms: Work/School Release Form(ED) Time of Disposition: 16:58
== END 2022-05-01 17:57 | disposition home or self-care (01) ==
LOC: ED 11:41
DX: M25.572 Pain in left ankle and joints of left foot (principal); I10 Essential (primary) hypertension; E11.9 Type 2 diabetes mellitus without complications; Z91.09 Other allergy status, other than to drugs and biological substances
CPT/HCPCS: 99283